=== PATIENT | female | born 1940 | race Caucasian/White ===

== ENCOUNTER 2016-10-20 14:08 | Emergency (ER) | payer MEDICARE, OTHER ==
--- NOTE | ~2016-10-20 | CR281 ---
[facility] A Service of [facility] RADIOLOGY TEXT RESULTS PATIENT: VELASQUEZ MONTEJO LOCATION: SED : 42 UNIT #: [id number] AGE: [address]: Jeovanny Thorne MD SEX: F ORDER DR: [id number] [place] [id number] E MR#: [id number] Acc #: [id number] NAME: VELASQUEZ MONTEJO : 1940 SEX: F STUDY DATE/TIME: 10/20/2016 14:40 UNIT: SED ROOM: STUDY DESCRIPTION: CR Wrist Min 3 View Lt Attending Physician: Jeovanny Thorne M.D. Ordering Physician: Jeovanny Thorne M.D. Primary Care Physician: Sarah Burnette M.D. MEDICAL IMAGING REPORT This report is preliminary unless electronic signature is present. EXAM 3 views of the left wrist. DATE 10/20/2016 HISTORY 76-year-old female with left wrist pain after falling today. COMPARISON None. FINDINGS There is a nondisplaced fracture of the radial styloid process extending to the articular surface. There is also a minimally-displaced fracture of the ulnar styloid. Radiocarpal alignment is maintained. No carpal bone fracture is seen. IMPRESSION 1. Nondisplaced oblique fracture of the radial styloid. 2. Minimally-displaced fracture of the ulnar styloid. 3. No wrist joint dislocation. Dictated by... Ana Martínez M.D. THIS IS AN ELECTRONICALLY VERIFIED REPORT Ana Martínez M.D. at 10/21/2016 10:40 AM THERESA/heike TD: 10/20/2016 20:17 JOB #: [id number] [facility] A Service [facility] RADIOLOGY TEXT RESULTS PATIENT: VELASQUEZ MONTEJO LOCATION: SED : 42 UNIT #: [id number] AGE: [address]: Jeovanny Thorne MD SEX: F ORDER DR: MEDICAL IMAGING REPORT Page 1 of 1
--- NOTE | ~2016-10-20 | CR150 ---
[facility] A Service of [facility] RADIOLOGY TEXT RESULTS PATIENT: VELASQUEZ MONTEJO LOCATION: SED : 42 UNIT #: [id number] AGE: [address]: Jeovanny Thorne MD SEX: F ORDER DR: [id number] [place] [id number] E MR#: [id number] Acc #: [id number] NAME: VELASQUEZ MONTEJO : 1940 SEX: F STUDY DATE/TIME: 10/20/2016 14:40 UNIT: SED ROOM: STUDY DESCRIPTION: CR Hip Min 2 Views Lt Attending Physician: Jeovanny Thorne M.D. Ordering Physician: Jeovanny Thorne M.D. Primary Care Physician: Sarah Burnette M.D. MEDICAL IMAGING REPORT This report is preliminary unless electronic signature is present. EXAMINATION AP pelvis with frog view left hip (2 images). DATE 10/20/2016 HISTORY Left posterior hip pain after falling today. COMPARISON AP pelvis with left hip radiographs, 12/26/2013. 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 No periprosthetic fracture is seen, to the extent that the prosthesis is imaged. No right or left hip fracture or hip joint dislocation is identified. Moderate osteoarthritic change is demonstrated within the left hip with marginal femoral head osteophyte formation and superior lateral acetabular osteophyte formation. Left hip joint space appears preserved, however. Diminished disc height is present in the lower lumbar spine with marginal lumbar osteophyte formation. No sacroiliac joint or pubis symphysis diastasis is seen. IMPRESSION 1. 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 2. No evidence of acute pelvic fracture, hip fracture hip or hip dislocation. 3. Right hip replacement changes. 4. Mild degenerative changes of the imaged lower lumbar spine. Dictated by... Ana Martínez M.D. [facility] A Service of [facility] RADIOLOGY TEXT RESULTS PATIENT: VELASQUEZ MONTEJO LOCATION: SED : 42 UNIT #: [id number] AGE: [address]: Jeovanny Thorne MD SEX: F ORDER DR: THIS IS AN ELECTRONICALLY VERIFIED REPORT Ana Martínez M.D. at 10/21/2016 10:40 AM THERESA/kiarra TD: 10/20/2016 20:04 JOB #: [id number] MEDICAL IMAGING REPORT Page 1 of 1
--- NOTE | ~2016-10-20 | CR93 ---
[facility] A Service of [facility] RADIOLOGY TEXT RESULTS PATIENT: VELASQUEZ MONTEJO LOCATION: SED : 42 UNIT #: [id number] AGE: [address]: Jeovanny Thorne MD SEX: F ORDER DR: [id number] [place] [id number] E MR#: [id number] Acc #: [id number] NAME: VELASQUEZ MONTEJO : 1940 SEX: F STUDY DATE/TIME: 10/20/2016 14:40 UNIT: SED ROOM: STUDY DESCRIPTION: CR Elbow Min 3 Views Lt Attending Physician: Jeovanny Thorne M.D. Ordering Physician: Jeovanny Thorne M.D. Primary Care Physician: Sarah Burnette M.D. MEDICAL IMAGING REPORT This report is preliminary unless electronic signature is present. EXAMINATION Three views of the left elbow. DATE 10/20/2016 HISTORY Left posterior elbow pain and distal radial pain and swelling after falling today. COMPARISON None. FINDINGS No acute fracture/joint dislocation is seen. No definite joint effusion. No retained opaque foreign body or osteolytic or osteoblastic abnormality. IMPRESSION Normal left elbow. Dictated by... Ana Martínez M.D. THIS IS AN ELECTRONICALLY VERIFIED REPORT Ana Martínez M.D. at 10/21/2016 10:40 AM THERESA/kiarra TD: 10/20/2016 19:55 JOB #: [id number] MEDICAL IMAGING REPORT [facility] A Service of [facility] RADIOLOGY TEXT RESULTS PATIENT: VELASQUEZ MONTEJO LOCATION: SED : 42 UNIT #: [id number] AGE: [address]: Jeovanny Thorne MD SEX: F ORDER DR: Page 1 of 1
[~2016-10-20 14:08] MED LIST: ALBUTEROL17 GM; ALBUTEROL17 GM INH; ALLERCLEAR10 MG PO; BENZONATATE PO; LEVAQUIN PO; LEVOTHYROXINE88 MCG PO; LIPITOR20 MG PO; LOTREL; LOTREL 10-20 MG1 CAP PO; LOW DOSE ASPIRI81 M1 PO; MACROBID100 MG PO; MEDI-MECLIZINE25 M1 PO; MOTRIN600 M2 PO; NAMENDA10 MG; NAPROXEN; NEURONTIN300 MG PO; OMNICEF300 MG PO; PERCOCET5/325 PO; PREDNISONE PO; PROVENTIL2 MG; RANITIDINE HCL150 M1 PO; SYNTHROID88 MCG PO; VICODIN PO; ZANTAC PO; ZITHROMAX PO; ZOCOR20 MG PO; ZOFRANODT SL; [UNRECOGNIZED DRUG - OTHER] PO
== END 2016-10-20 17:06 | disposition home or self-care (01) ==
LOC: SED 14:08
DX: S52.515A Nondisplaced fracture of left radial styloid process, initial encounter for closed fracture (principal); S52.615A Nondisplaced fracture of left ulna styloid process, initial encounter for closed fracture; Z79.899 Other long term (current) drug therapy; Z88.2 Allergy status to sulfonamides; Z88.0 Allergy status to penicillin; W01.0XXA Fall on same level from slipping, tripping and stumbling without subsequent striking against object, initial encounter; Y92.009 Unspecified place in unspecified non-institutional (private) residence as the place of occurrence of the external cause
CPT/HCPCS: 29260; 73080; 73110; 73502; 99283

== ENCOUNTER 2016-10-31 12:05 | Emergency (ER) | payer MEDICARE, OTHER ==
--- NOTE | ~2016-10-31 | CR63 ---
[facility] A Service of [facility] RADIOLOGY TEXT RESULTS PATIENT: VELASQUEZ MONTEJO LOCATION: SED : 42 UNIT #: [id number] AGE: [address]: MIHAI BUSCH SEX: F ORDER DR: [id number] [address] [address] [id number] E MR#: [id number] Acc #: [id number] NAME: VELASQUEZ MONTEJO : 1940 SEX: F STUDY DATE/TIME: 10/31/2016 12:31 UNIT: SED ROOM: STUDY DESCRIPTION: CR Chest 2 View Attending Physician: Mihai Busch Aprn Ordering Physician: Mihai Busch Aprn Primary Care Physician: Sarah Burnette M.D. MEDICAL IMAGING REPORT This report is preliminary unless electronic signature is present. EXAM Two-view chest, 10/31/2016. INDICATIONS 76-year-old female who fell and landed on the left side. Rib pain, axillary pain, symptoms a week. History of thyroid malignancy. TECHNIQUE Two view chest was performed and compared with 09/28/2014. FINDINGS Cardiac silhouette is within normal limits. The vascularity is normal. No effusion, pneumothorax or dense consolidation. There is old healed granulomatous disease. Previously documented 12 mm nodule in the upper lobe on the right unchanged and therefore benign. IMPRESSION 1. Old healed granulomatous disease. No definite superimposed active disease. No significant change from 09/28/2014. Dictated by... Aaron Montiel M.D. THIS IS AN ELECTRONICALLY VERIFIED REPORT Aaron Montiel M.D. at 11/01/2016 8:46 AM Serge TD: 10/31/2016 22:44 JOB #: [id number] MEDICAL IMAGING REPORT Page 1 of 1
== END 2016-10-31 13:52 | disposition home or self-care (01) ==
LOC: SED 12:05
DX: S20.212A Contusion of left front wall of thorax, initial encounter (principal); E11.9 Type 2 diabetes mellitus without complications; I10 Essential (primary) hypertension; Z90.89 Acquired absence of other organs; Z88.0 Allergy status to penicillin; Z88.2 Allergy status to sulfonamides; Z79.899 Other long term (current) drug therapy; W18.30XA Fall on same level, unspecified, initial encounter; Y92.098 Other place in other non-institutional residence as the place of occurrence of the external cause
CPT/HCPCS: 71020; 99285

== ENCOUNTER → 2016-12-23 | Outpatient (CLI) | payer MEDICARE, OTHER ==
[2016-12-23 14:31] LABS: FREE THYROXIN (T4) 0.97 ng/dL (0.58-1.64)
[2016-12-23 14:57] LABS: THYROID STIMULATING HORMONE 1.01 uIU/ml (0.34-5.60)
== END | disposition home or self-care (01) ==
LOC: SLABONLY 12:55
PROVIDERS: Internal Medicine Endocrinology, Diabetes & Metabolism
DX: E89.0 Postprocedural hypothyroidism (principal); Z85.850 Personal history of malignant neoplasm of thyroid
CPT/HCPCS: 36415; 84432; 84439; 84443; 86800